=== PATIENT | male | born 1990 | race Caucasian/White ===

== ENCOUNTER 2018-04-07 03:17 | Emergency (ER) | payer OTHER ==
[~2018-04-07] VITALS: Ht 180.3 cm; Wt 79.4 kg
[~2018-04-07 03:17] MED LIST: IBUPROFEN 600600 M1 PO; NORCO 5-325 TA1 EACH PO; SEROQUEL 25 MG25 M1 PO
[2018-04-07] MEDS ORDERED: KEFLEX500 M1 PO (05:16)
[2018-04-07 05:30] VITALS: BP 141/75
== END 2018-04-07 05:31 | disposition home or self-care (01) ==
LOC: ER 03:17
DX: S51.812A Laceration without foreign body of left forearm, initial encounter (principal); F41.9 Anxiety disorder, unspecified; R00.0 Tachycardia, unspecified; F17.210 Nicotine dependence, cigarettes, uncomplicated; Z88.0 Allergy status to penicillin; W25.XXXA Contact with sharp glass, initial encounter; Y93.89 Activity, other specified; Y92.89 Other specified places as the place of occurrence of the external cause; Y99.8 Other external cause status